=== PATIENT | male | born 1955 | race Caucasian/White ===

== ENCOUNTER 2020-02-19 16:40 | Inpatient (IN) | payer MEDICAID, SELFPAY ==
[~2020-02-19] VITALS: Ht 154.9 cm; Wt 89.8 kg
[2020-02-19 17:32] VITALS: BP 134/76
[2020-02-19 17:57] LABS: BASOPHILS % (AUTO) 0.2 % (0.0-2.0); HEMATOCRIT 42.4 % (36-52); HEMOGLOBIN 14.1 g/dL (12.0-18.0); LYMPHOCYTES # (AUTO) 0.6 K/uL (2.0-11.5); LYMPHOCYTES % (AUTO) 5.6 % (20.5-51.1); MEAN CORPUSCULAR HEMOGLOBIN 31 pg (27-31); MEAN CORPUSCULAR HGB CONC 33 g/dL (33-37); MEAN CORPUSCULAR VOLUME 92.4 fL (80-94); MONOCYTES # (AUTO) 0.7 K/uL (0.8-1.0); MONOCYTES % (AUTO) 6.2 % (1.7-9.3); NEUTROPHILS # (AUTO) 9.7 K/uL (1.8-7.7); PLATELET COUNT (AUTO) 195 K/uL (140-450); RED BLOOD CELL COUNT(AUTO) 4.58 MIL/uL (4.20-6.10); RED CELL DISTRIBUTION WIDTH 12.9 % (11.6-13.7)
[2020-02-19 18:10] LABS: PROTHROMBIN TIME 9.6 secs (10.8-13.4)
[2020-02-19 18:13] LABS: ALBUMIN 2.8 g/dL (3.4-5.0); ANION GAP 15.4 (8-16); CARBON DIOXIDE 25.7 mmol/L (21-32); CREATININE 1.1 mg/dL (0.6-1.3); POTASSIUM 4.1 mmol/L (3.5-5.1); TOTAL BILIRUBIN 0.5 mg/dL (0.0-1.0)
[2020-02-19 18:14] LABS: LACTATE DEHYDROGENASE 575 U/L (85-227)
[2020-02-19 18:24] LABS: C-REACTIVE PROTEIN QUANT 22.3 mg/dL (0.0-0.9)
[2020-02-19] MEDS ORDERED: AZITHROMYCIN 500 MG in DEXTROSE 5% 250 ML IV ONE (19:20)
--- NOTE | 2020-02-19 20:00 | NUR ---
PT MOVED TO ER BED 8 FROM TENT
--- NOTE | 2020-02-19 20:15 | NUR ---
PT MOVED TO ED BED 8
--- NOTE | 2020-02-19 20:30 | NUR ---
PT CONNECTED TO THE BELT LOOP MACHINE OPERATOR. PT IS RESTING, VISIBLE RISE AND FALL OF CHEST NOTED. NOT ACUTE DISTRESS AT THIS TIME. BED IS LOCKED AND IN LOWEST POSITION. SIDE RAILSX1. CALL LIGHT WITHIN REACH WILL CONTINUE TO MONITOR.
--- NOTE | 2020-02-19 20:35 | NUR ---
20G IV INITIATED IN THE RIGHT FOREARM RUNNING ANTIBIOTICS PER ERMD ORDERS.
[2020-02-19] MEDS ORDERED: AZITHROMYCIN 500 MG INJ VIAL IV ONE (20:38)
[2020-02-19] MEDS ORDERED: cefTRIAXone 1,000 MG VIAL ONE (20:38)
[2020-02-19 22:17] LABS: RSV NEGATIVE (NEGATIVE)
--- NOTE | 2020-02-19 22:20 | NUR ---
PT POSITIONED FOR COMFORT. PT CONNECTED TO THE CORROSION CONTROL FITTER. PT IS RESTING, VISIBLE RISE AND FALL OF CHEST NOTED. NOT ACUTE DISTRESS AT THIS TIME. BED IS LOCKED AND IN LOWEST POSITION. SIDE RAILSX1. CALL LIGHT WITHIN REACH WILL CONTINUE TO MONITOR.
--- NOTE | 2020-02-19 22:30 | NUR ---
PT UNABLE TO PROVIDE URINE SPECIMEN AT THIS TIME.
[2020-02-19] MEDS ORDERED: ALBUTEROL HFA MDI 90 MCG/ACTUATION 8 GM INH PRN (22:55)
[2020-02-19] MEDS ORDERED: NACL 0.9% 1,000 ML IV SCH (22:55)
[2020-02-19] MEDS ORDERED: DOCUSATE SODIUM 100 MG GELCAP PO PRN (22:55)
[2020-02-19] MEDS ORDERED: DEXTROSE 50% 50 ML SYR IVP PRN (22:55)
[2020-02-19] MEDS ORDERED: ONDANSETRON 4 MG/2 ML VIAL IM/IVP PRN (22:55)
[2020-02-19] MEDS ORDERED: POTASSIUM CHLORIDE 10 MEQ TABER PO PRN (22:55)
[2020-02-19 23:31] LABS: CHOL/HDL RATIO 5.2 (1-4.5); FREE T4 (FREE THYROXINE) 1.05 ng/dL (0.76-1.46); THYROID STIMULATING HORMONE 0.62 uIU/mL (0.34-3.74)
--- NOTE | 2020-02-20 00:10 | NUR ---
URINE SPECIMEN WALKED OVER TO LAB
--- NOTE | 2020-02-20 00:30 | NUR ---
PT IS RESTING, VISIBLE RISE AND FALL OF CHEST NOTED. PT CONNECTED TO THE DOORS PREFITTER. NOT ACUTE DISTRESS AT THIS TIME. BED IS LOCKED AND IN LOWEST POSITION. SIDE RAILSX1. CALL LIGHT WITHIN REACH WILL CONTINUE TO MONITOR.
[2020-02-20 01:01] LABS: APPEARANCE,URINE CLEAR (CLEAR); BILIRUBIN,URINE NEGATIVE (NEGATIVE); BLOOD, URINE NEGATIVE (NEGATIVE); COLOR,URINE YELLOW (YELLOW); LEUKOCYTE ESTERASE ,URINE NEGATIVE (NEGATIVE); NITRITE, URINE NEGATIVE (NEGATIVE); UGLUCOSE NEGATIVE (NEGATIVE)
--- NOTE | 2020-02-20 01:50 | NUR ---
PT WANTS TO USE THE RESTROOM, PT REMINDED THAT HE IS UNABLE TO AMBULATED TO THE ED MAIN RESTROOM DUE TO QUICK DESATURATION. BEDSIDE COMMODE PROVIDED. PT CONNECTED TO THE VACUUM METALIZING SUPERVISOR. NOT ACUTE DISTRESS AT THIS TIME. BED IS LOCKED AND IN LOWEST POSITION. SIDE RAILSX1. CALL LIGHT WITHIN REACH WILL CONTINUE TO MONITOR.
--- NOTE | 2020-02-20 02:00 | NUR ---
REPORT GIVEN TO MEIR PALMA FOR CONTINUATION OF CARE AT THIS TIME.
--- NOTE | 2020-02-20 03:22 | NUR ---
see complete assessment.
--- NOTE | 2020-02-20 03:45 | NUR ---
Pt had 1 soft brown stool at this time.
--- NOTE | 2020-02-20 03:48 | NUR ---
Pt provided w/ pillow and blanket for comfort. VSS. No acute distress noted.
--- NOTE | 2020-02-20 05:00 | NUR ---
Pt oxygen level decreased to 77% on 8L on oximizer, pt repositioned to left lateral , new oxygen level at 91%.
--- NOTE | 2020-02-20 07:28 | NUR ---
Report given to MEIR Costa for transfer of care.
--- NOTE | 2020-02-20 07:29 | NUR ---
Report received from MEIR chau, transfer of care at this time.
--- NOTE | 2020-02-20 07:53 | NUR ---
Pt on left side with oximizer sats at 92%, VSS, will continue to monitor.
[2020-02-20] MEDS: BLOOD GLUCOSE MONITORING 1 DEV DEV FS SCH ×4 (08:22→21:12)
[2020-02-20 08:29] LABS: BASOPHILS % (AUTO) 0.2 % (0.0-2.0); HEMATOCRIT 26.3 % (36-52); HEMOGLOBIN 8.7 g/dL (12.0-18.0); LYMPHOCYTES # (AUTO) 0.6 K/uL (2.0-11.5); LYMPHOCYTES % (AUTO) 8.7 % (20.5-51.1); MEAN CORPUSCULAR HEMOGLOBIN 31 pg (27-31); MEAN CORPUSCULAR HGB CONC 33 g/dL (33-37); MEAN CORPUSCULAR VOLUME 93.9 fL (80-94); MONOCYTES # (AUTO) 0.6 K/uL (0.8-1.0); MONOCYTES % (AUTO) 8.6 % (1.7-9.3); NEUTROPHILS # (AUTO) 5.4 K/uL (1.8-7.7); NEUTROPHILS % (AUTO) 82.5 % (42.2-75.2); PLATELET COUNT (AUTO) 117 K/uL (140-450); RED CELL DISTRIBUTION WIDTH 12.6 % (11.6-13.7); WHITE BLOOD COUNT (AUTO) 6.6 K/uL (4.8-10.8)
--- NOTE | 2020-02-20 08:36 | NUR ---
Pt changed to NRB to 15L with O2 at 90%, requesting to be up to commode.
[2020-02-20] MEDS: ASCORBIC ACID 500 MG TAB PO SCH (08:44)
--- NOTE | 2020-02-20 08:55 | NUR ---
PATIENT HAS BEEN SCREENED AND CATEGORIZED MODERATE NUTRITION RISK. PATIENT WILL BE SEEN WITHIN 3-5 DAYS OF ADMISSION. 02/22/20 02/24/[address]
--- NOTE | 2020-02-20 10:27 | NUR ---
Pt up to commode and had 1 soft BM.
--- NOTE | 2020-02-20 11:24 | NUR ---
SOCIAL WORK NOTE: Patient's Orientation Unable To Assess Information Provided By CHIQUI KRISHNAMURTHY - SON Comments SW WAS UNABLE TO MEET PATIENT AT BEDSIDE. SW COMPLETED ASSESSMENT WITH PATIENT'S SON. Rim Turning Machine Operator, Realtionship and Phone Number CHIQUI VALDIVIA [phone] Healthcare Power of Tax Services Intern No Does Patient Have a POLST No Identifying Problems No Social Work Triggers Is A Social Work Consult Needed No Mandate Report Filed No Explanation Of Identifying Problems PATIENT IS A 64-YEAR-OLD MALE ADMITTED FOR RESPIRATORY FAILURE. PATIENT HAS PMHX OF HYPERTENSION AND DIABETES. Admitted From Home Pre-Admission Level Of Functioning Status Independent/Ambulatory Prior Resources/Services Used In Last 12 Months No Prior Resources Used Prior DME No Prior DME Used Dialysis Comments N/A Living Situation Apartment Lives With Spouse Patient Had Caregiver No Home Support No Caregiver Issues Financial Issues No Known Financial Issue Referral To The Financial Counselor Needed No Factors/Needs No D/C Needs Identified Pt/Rep Participated In Discharge Plan Yes Patient/Family Agress With Discharge Plan Yes Discharge Plan Comments TENTATIVE DISCHARGE PLAN IS FOR PATIENT TO RETURN HOME. DC Plan Status Initiated
--- NOTE | 2020-02-20 13:28 | NUR ---
Spoke with Agnes engle for updates.
--- NOTE | 2020-02-20 13:45 | NUR ---
Emptied 475cc from pt urinal.
--- NOTE | 2020-02-20 15:21 | NUR ---
Pt in left side with oximizer 8L NC O2 sats above 90%.
--- NOTE | 2020-02-20 17:34 | NUR ---
Pt urinal emptied, 250cc.
--- NOTE | 2020-02-20 18:44 | NUR ---
Pt sleeping, visible equal rise and fall of chest, VSS, will continue to monitor.
--- NOTE | 2020-02-20 19:21 | NUR ---
Report given to MEIR Pollard, transfer of care.
--- NOTE | 2020-02-20 19:26 | NUR ---
RECEIVED REPORT FROM HARSH WORLEY FOR CONTINUATION OF CARE.
--- NOTE | 2020-02-20 19:50 | NUR ---
64 YR OLD MALE FOUND AWAKE LYING ON LEFT LATERAL POSITION IN BED. PATIENT IS AOX4. PATIENT HAS WHEEZES BILATERALLY. PATIENT BREATHING HAS EQUAL RISE AND FALL. PATIENT HEART SOUNDS WNL. PATIENT HAS 20 IV IN RIGHT FOREARM. PATIENT BED IS LOCKED IN LOWEST POSITION WITH 1 SIDE RAILS UP. PATIENT CALL LIGHT WITHIN REACH OF PATIENT. WILL CONTINUE TO MONITOR.
--- NOTE | 2020-02-20 19:50 | NUR ---
PATIENT STATES 8/10 NON-RADIATING HEADACHE PAIN. NORCO WAS ADMINSITERED FOR HEADACHE PAIN. WILL CONTINUE TO REEVALUATE.
[2020-02-20] MEDS: HYDROcodone/APAP 7.5/325 MG 1 TAB PO PRN (19:53)
--- NOTE | 2020-02-20 21:14 | NUR ---
PATIENT FOUND AWAKE LYING ON RIGHT LATERAL POSITION IN BED. PATIENT IS AOX4. PATIENT HAS WHEEZES BILATERALLY. PATIENT BREATHING HAS EQUAL RISE AND FALL. PATIENT HEART SOUNDS WNL. PATIENT STATES 0/10 HEADACHE PAIN. PATIENT BED IS LOCKED IN LOWEST POSITION WITH 1 SIDE RAILS UP. PATIENT CALL LIGHT WITHIN REACH OF PATIENT. WILL CONTINUE TO MONITOR.
--- NOTE | 2020-02-20 22:41 | NUR ---
PATIENT FOUND ASLEEP PRONE POSITION IN BED. PATIENT IS IN NO DISTRESS. PATIENT IS AOX4. PATIENT HAS WHEEZES BILATERALLY. PATIENT BREATHING HAS EQUAL RISE AND FALL. PATIENT HEART SOUNDS WNL. PATIENT BED IS LOCKED IN LOWEST POSITION WITH 1 SIDE RAILS UP. PATIENT CALL LIGHT WITHIN REACH OF PATIENT. WILL CONTINUE TO MONITOR.
[2020-02-20] MEDS ORDERED: cefTRIAXone 1,000 MG VIAL ONE (23:01)
[2020-02-20] MEDS: AZITHROMYCIN 250 MG TAB PO SCH (23:25)
--- NOTE | 2020-02-20 23:27 | NUR ---
PATIENT FOUND ASLEEP PRONE POSITION IN BED. PATIENT IS IN NO DISTRESS. PATIENT IS AOX4. PATIENT HAS WHEEZES BILATERALLY. PATIENT BREATHING HAS EQUAL RISE AND FALL. PATIENT HEART SOUNDS WNL. EMPTIED 400 ML OF YELLOW URINE FROM PATIENT URINAL. PATIENT BED IS LOCKED IN LOWEST POSITION WITH 1 SIDE RAILS UP. PATIENT CALL LIGHT WITHIN REACH OF PATIENT. WILL CONTINUE TO MONITOR.
--- NOTE | 2020-02-21 00:39 | NUR ---
PATIENT FOUND ASLEEP PRONE POSITION IN BED. PATIENT IS IN NO DISTRESS. PATIENT HAS WHEEZES BILATERALLY. PATIENT BREATHING HAS EQUAL RISE AND FALL. PATIENT BED IS LOCKED IN LOWEST POSITION WITH 1 SIDE RAILS UP. PATIENT CALL LIGHT WITHIN REACH OF PATIENT. WILL CONTINUE TO MONITOR.
--- NOTE | 2020-02-21 00:50 | NUR ---
PATIENT FOUND AWAKE ON RIGHT LATERAL POSITION IN BED. PATIENT STATES NO PAIN AND NO DISTRESS. PATIENT HAS WHEEZES BILATERALLY. PATIENT BREATHING HAS EQUAL RISE AND FALL. PATIENT HEART SOUNDS WNL. 125ML OF CLEAR YELLOW URINE EMPTIED FROM PATIENT'S URINAL. PATIENT BED IS LOCKED IN LOWEST POSITION WITH 1 SIDE RAILS UP. PATIENT CALL LIGHT WITHIN REACH OF PATIENT. WILL CONTINUE TO MONITOR.
--- NOTE | 2020-02-21 02:11 | NUR ---
PATIENT FOUND AWAKE ON LEFT LATERAL POSITION IN BED. PATIENT STATES NO PAIN AND NO DISTRESS. PATIENT HAS WHEEZES BILATERALLY. PATIENT BREATHING HAS EQUAL RISE AND FALL. PATIENT HEART SOUNDS WNL. PATIENT BED IS LOCKED IN LOWEST POSITION WITH 2 SIDE RAILS UP. PATIENT CALL LIGHT WITHIN REACH OF PATIENT. WILL CONTINUE TO MONITOR.
--- NOTE | 2020-02-21 03:22 | NUR ---
PATIENT WAS FOUND AWAKE ON LEFT LATERAL SIDE. PATIENT REQUESTED BED GLASGOW. BED GLASGOW WAS PROVIDED FOR PATIENT TO USE. PATIENT STATED DOES NOT NEED ASSISTANCE TO USE BED GLASGOW. PATIENT WAS INFORMED TO USE CALL LIGHT IF ASSISTANCE IS NEEDED. PATIENT ACKNOWLEDGE TO USE CALL LIGHT WHEN ASSISTANCE IS NEEDED AFTER BED GLASGOW USE. CALL LIGHT IS WITHIN PATIENT REACH. PATIENT STATES NO PAIN. PATIENT STATES NO DISTRESS. WILL CONTINUE TO MONITOR.
--- NOTE | 2020-02-21 03:39 | NUR ---
PATIENT HAD BOWEL MOVEMENT INTO BED GLASGOW. PATIENT BOWEL MOVEMENT IS SOFT AND BROWN. 100 ML OF CLEAR YELLOW URINE EMPTIED FROM URINAL. PATIENT STATES NO PAIN AND NO DISTRESS.
--- NOTE | 2020-02-21 03:54 | NUR ---
PATIENT FOUND AWAKE IN RIGHT LATERAL POSITION IN BED. PATIENT STATES NO PAIN NO DISTRESS. PATIENT HAS WHEEZES BILATERALLY. PATIENT BREATHING HAS EQUAL RISE AND FALL. PATIENT BED IS LOCKED IN LOWEST POSITION WITH 2 SIDE RAILS UP. PATIENT CALL LIGHT WITHIN REACH OF PATIENT. WILL CONTINUE TO MONITOR.
[2020-02-21] MEDS: HYDROcodone/APAP 7.5/325 MG 1 TAB PO PRN ×4 (06:31→23:53)
--- NOTE | 2020-02-21 06:33 | NUR ---
PATIENT FOUND AWAKE IN SEMI-FOWLERS POSITION IN BED. PATIENT STATES 8/10 NON-RADIATING HEADACHE PAIN. NORCO WAS ADMINSITERED FOR HEADACHE PAIN. PATIENT HAS WHEEZES BILATERALLY. PATIENT BREATHING HAS EQUAL RISE AND FALL. PATIENT BED IS LOCKED IN LOWEST POSITION WITH 2 SIDE RAILS UP. PATIENT CALL LIGHT WITHIN REACH OF PATIENT. WILL CONTINUE TO MONITOR.
--- NOTE | 2020-02-21 06:57 | NUR ---
PATIENT FOUND AWAKE IN SEMI-FOWLERS POSITION IN BED. PATIENT STATES 0/10 HEADACHE PAIN. PATIENT STATES NO DISTRESS. PATIENT HAS WHEEZES BILATERALLY. PATIENT BREATHING HAS EQUAL RISE AND FALL. PATIENT BED IS LOCKED IN LOWEST POSITION WITH 2 SIDE RAILS UP. PATIENT CALL LIGHT WITHIN REACH OF PATIENT. WILL CONTINUE TO MONITOR
--- NOTE | 2020-02-21 07:18 | NUR ---
TRANSFER OF CARE REPORT GIVEN TO RONALD WORLEY.
[2020-02-21 08:07] LABS: T4 (THYROXINE) 5.8 ug/dL (4.5-12.0)
[2020-02-21] MEDS: BLOOD GLUCOSE MONITORING 1 DEV DEV FS SCH ×4 (08:20→22:17)
[2020-02-21 08:49] LABS: BASOPHILS % (AUTO) 0.3 % (0.0-2.0); EOSINOPHILS % (AUTO) 0.1 % (0.0-4.0); HEMATOCRIT 39.6 % (36-52); HEMOGLOBIN 13.5 g/dL (12.0-18.0); LYMPHOCYTES # (AUTO) 0.9 K/uL (2.0-11.5); LYMPHOCYTES % (AUTO) 8.1 % (20.5-51.1); MEAN CORPUSCULAR HEMOGLOBIN 32 pg (27-31); MEAN CORPUSCULAR HGB CONC 34 g/dL (33-37); MEAN CORPUSCULAR VOLUME 92.9 fL (80-94); MONOCYTES # (AUTO) 1.1 K/uL (0.8-1.0); MONOCYTES % (AUTO) 9.9 % (1.7-9.3); NEUTROPHILS # (AUTO) 8.7 K/uL (1.8-7.7); NEUTROPHILS % (AUTO) 81.6 % (42.2-75.2); PLATELET COUNT (AUTO) 200 K/uL (140-450); RED BLOOD CELL COUNT(AUTO) 4.26 MIL/uL (4.20-6.10); RED CELL DISTRIBUTION WIDTH 12.7 % (11.6-13.7); WHITE BLOOD COUNT (AUTO) 10.7 K/uL (4.8-10.8)
--- NOTE | 2020-02-21 09:06 | NUR ---
Patient seated upright in bed with breakfast tray, awake and alert. VSS
[2020-02-21] MEDS: ASCORBIC ACID 500 MG TAB PO SCH (09:18)
[2020-02-21 10:18] LABS: ANION GAP 21.2 (8-16); CARBON DIOXIDE 21.5 mmol/L (21-32); CREATININE 0.8 mg/dL (0.6-1.3); POTASSIUM 3.7 mmol/L (3.5-5.1)
[2020-02-21] MEDS ORDERED: LOVENOX 1MG/KG Q12H SUBQ SCH (10:25)
[2020-02-21] MEDS ORDERED: remdesivir COMMUNICATION ORDER 1 EA MISC MC PRN (10:25)
[2020-02-21] MEDS ORDERED: remdesivir CLINICAL MONITORING 1 EA MISC MC PRN (11:00)
--- NOTE | 2020-02-21 11:54 | NUR ---
C/O PAIN. MEDICATED ORDERED. SOB IS NOTED ON EXERTION
[2020-02-21] MEDS ORDERED: REMDESIVIR (EUA) 200 MG in NACL 0.9% 100 ML IV SCH (12:00)
--- NOTE | 2020-02-21 12:00 | NUR ---
ACCUCHECK = 107
--- NOTE | 2020-02-21 14:38 | NUR ---
DC PLANNIN YRS OLD MALE PATIENT WAS ADMITTED FROM HOME WITH A DX OF ACUTE RESP FAILURE , SUSPECT COVID. PCR COVID TEST POSITIVE. STARTED WITH COVID TREATMENT. REMDESEIVR IV, ROCEPHIN AND AZITHROMYCIN. ON 15L/NRB SATING 93% CONSULTED WITH ID AND PULMO. DC PLAN TO GO HOME WHEN STABLE CM TO FOLLOW Addendum: 02/26/20 at 1204 by Betty Vasquez RN DC PLANNING PT IS STILL ON 15L/NRB SATING 90% ,CONTINUE COVID PROTOCOL , ID AND PULMO FOLLOWING. CM TO FOLLOW
--- NOTE | 2020-02-21 19:30 | NUR ---
RECEIVED REPORT FROM JOSEPH WORLEY
--- NOTE | 2020-02-21 20:04 | NUR ---
PT SCREAMING IN HIS ROOM, PT SAYS HE WANTS HIS NONREBREATHER TURNED DOWN, PT O2 SAT 79%, EXPALINED TO PT THAT HIS O2 SAT IS TOO LOW AND IT WILL NOT BE TURNED DOWN, HE KEEPS REMOVING HIS MASK, ADVISED ITS VERY DANGEROUS FOR THE LEVEL TO DROP INTO THE 70'S AND IT CONTINUES HE WILL HAVE TO BE INTUBATED. PT VERBALIZED UNDERSTANDING AND PLAVED MASK BACK ON . PT REMAINS ON BEDSIDE MONITOR. WILL CONTINUE TO MONITOR PT
--- NOTE | 2020-02-21 20:10 | NUR ---
PT C/O PAIN, MEDICATED ORDERED WITH BRENNA
[2020-02-21] MEDS ORDERED: cefTRIAXone 1,000 MG VIAL ONE (21:58)
[2020-02-21] MEDS: ENOXAPARIN 100 MG/ML SYR SUBQ SCH (22:30)
--- NOTE | 2020-02-21 23:49 | NUR ---
PT C/O FEVER AND BODY ACHES. TEMP 97.5, STATES PAIN 10/10
--- NOTE | 2020-02-21 23:49 | NUR ---
MRSA SWAB COLLECTED AND TAKEN TO LAB
[2020-02-21] MEDS: AZITHROMYCIN 250 MG TAB PO SCH (23:54)
--- NOTE | 2020-02-21 23:56 | NUR ---
PT ALSO REQUESTING SLEEPING AID. NOTIFIED, ORDERED RECEIVED
[2020-02-22] MEDS ORDERED: ZOLPIDEM 5 MG TAB ONE
--- NOTE | 2020-02-22 01:21 | NUR ---
PT'S O2 SAT CONTINUES TO FALL IN THE LOW 80'S TO 79%. PT WAS SLEEPING WHEN I WNET IN AND TURNED FROM 12L TO 15 L ON NONREBREATHER. PT NOW COMPLAINING AGAIN THAT THE O2 IS TO HIGH. CONTINOUSLY EXPLAIN TO PT THE NEED AND IMPORTANCE TO KEEP HIS O2 SAT IN THE HIGH 80'S AT THE LEAST. PT STATES HE UNDERSTANDS BUT CONTINUES TO COMPLAIN. PT REMAINS ON BEDSIDE MONITOR AND O2. WILL CONTINUE TO ASSESS PT
--- NOTE | 2020-02-22 03:42 | NUR ---
PT REQUESTING BEDPAN, HAS TO HAVE A BOWEL MOVEMENT. SET UP BEDPAN AT SIDE ON BED ON THE CHAIR. PT SUPPLIED WITH WIPES AND TOILET PAPER.
--- NOTE | 2020-02-22 03:52 | NUR ---
PT CALLED ROCK DUST SPRAYER LIGHT, FOUND PT HAD MOVED BEDPAN TO FLOOR TO USE, WHEN ASKED IF HE NEEDED ASSISTANCE HE SAID "I JUST WANT TO BE LEFT ALONE"
[2020-02-22] MEDS: ZOLPIDEM 5 MG TAB PO PRN ×2 (03:59→21:40)
--- NOTE | 2020-02-22 04:14 | NUR ---
PT BACK IN BED, DID NOT HAVE BOWEL MOVEMENT
--- NOTE | 2020-02-22 05:58 | NUR ---
PT CRYING SAYING HE WANTS TO GO HOME, THATS HE'S BEEN HERE TOO LONG. PT CONTINUES TO COMPLAIN ABOUT HIS NONREBREATHER MASK AND CONTINUES TO REMOVE IT. ALSO COMPLAINING OF HEADACHE AND HE DOESN'T FEEL GOOD. EXPLAINED AGAIN TO PT THAT HE HAS BEEN ADMITTED TO HOSPITAL AND HE IS AWAITING A BED ON THE UNIT. CONTINUE TO EXPAIN TO PT THAT HE NEEDS TO ADMITTED DUE TO THE FACT HE IS SICK AND HE DOESN'T FEEL GOOD AND HE NEEDS TREATMENT IN THE HOSPITAL. PT IS VERY DRAMATIC, CURRENTLY ON THE PHONE AND CRYING TO FAMILY.
[2020-02-22] MEDS: HYDROcodone/APAP 7.5/325 MG 1 TAB PO PRN (06:06)
--- NOTE | 2020-02-22 07:22 | NUR ---
Pt report given to LIN WORLEY. Transfer of care at this time.
[2020-02-22] MEDS: BLOOD GLUCOSE MONITORING 1 DEV DEV FS SCH ×4 (07:56→20:50)
--- NOTE | 2020-02-22 07:58 | NUR ---
PATIENT RESTING IN BED AT THIS TIME, 15L NON BREATHER, NO ACUTE DISTRESS NOTED. AAOX4. GCS 15.
[2020-02-22] MEDS: ASCORBIC ACID 500 MG TAB PO SCH (08:13)
[2020-02-22] MEDS: ENOXAPARIN 100 MG/ML SYR SUBQ SCH ×2 (08:13→20:45)
[2020-02-22 08:45] LABS: BASOPHILS % (AUTO) 0.2 % (0.0-2.0); EOSINOPHILS % (AUTO) 0.2 % (0.0-4.0); HEMOGLOBIN 13.6 g/dL (12.0-18.0); LYMPHOCYTES # (AUTO) 0.9 K/uL (2.0-11.5); LYMPHOCYTES % (AUTO) 7.9 % (20.5-51.1); MEAN CORPUSCULAR HEMOGLOBIN 31 pg (27-31); MEAN CORPUSCULAR HGB CONC 33 g/dL (33-37); MEAN CORPUSCULAR VOLUME 92.7 fL (80-94); MONOCYTES # (AUTO) 1.2 K/uL (0.8-1.0); MONOCYTES % (AUTO) 10.7 % (1.7-9.3); NEUTROPHILS # (AUTO) 9.4 K/uL (1.8-7.7); PLATELET COUNT (AUTO) 239 K/uL (140-450); RED BLOOD CELL COUNT(AUTO) 4.42 MIL/uL (4.20-6.10); RED CELL DISTRIBUTION WIDTH 12.8 % (11.6-13.7); WHITE BLOOD COUNT (AUTO) 11.6 K/uL (4.8-10.8)
[2020-02-22 09:20] VITALS: BP 127/70
--- NOTE | 2020-02-22 09:27 | NUR ---
Patient will be admitted to care of [facility]. Admited to TELE. Will go to room 121B. Belongings list completed. Report to SHADI WORLEY.
[2020-02-22 09:39] LABS: ALBUMIN 2.5 g/dL (3.4-5.0); ANION GAP 17.6 (8-16); CARBON DIOXIDE 24.3 mmol/L (21-32); POTASSIUM 3.9 mmol/L (3.5-5.1); TOTAL BILIRUBIN 0.5 mg/dL (0.0-1.0)
[2020-02-22 12:00] VITALS: BP 131/75
[2020-02-22] MEDS: REMDESIVIR (EUA) 100 MG in NACL 0.9% 100 ML IV SCH (12:44)
--- NOTE | 2020-02-22 12:45 | NUR ---
SCHEDULED MEDICATION ADMINISTERED, PT IS RESTING IN BED, EDUCATION PROVIDED, PT VERBALIZED UNDERSTANDING, WILL CONTINUE TO MONITOR.
--- NOTE | 2020-02-22 15:48 | NUR ---
Covid results received from lab. Results = Positive. Hard copy requested from lab and placed in infection controls mailbox.
[2020-02-22 16:00] VITALS: BP 146/77
[2020-02-22] MEDS: INSULIN LISPRO SLIDING SCALE 100 UNITS/ML VIAL SUBQ PRN (17:20)
--- NOTE | 2020-02-22 17:27 | NUR ---
INSULIN COVERAGE NEEDED FOR BS 172, 2 UNITS ADMINISTERED, PT IS RESTING IN BED AND STATES HE WOULD LIKE TO TAKE MEDICATION TO HELP HIM SLEEP AT NIGHT, EDUCATED PT ON PRN AMBIEN, WILL CONTINUE TO MONITOR, NO SIGNS OF DISTRESS NOTED.
--- NOTE | 2020-02-22 19:20 | NUR ---
RECEIVED BEDSIDE REPORT FROM DAY SHIFT NURSE. PATIENT IS AWAKE RESPIRATION EVEN UNLABORED ON 15L NRB MASK. NO DISTRESS NOTED. SKIN IS WARM AND DRY. IV PATENT AND INTACT. PLAN OF CARE WAS DISCUSSED. ALL SAFETY MEASURES IN PLACE. BED IS AT LOW POSITION. CALL LIGHT WITHIN REACH. WILL CONTINUE TO MONITOR.
--- NOTE | 2020-02-22 19:40 | NUR ---
ENDORSED PT TO CERTIFIED SURGICAL TECHNOLOGIST NURSE FOR CONTINUITY OF CARE.
--- NOTE | 2020-02-22 20:50 | NUR ---
ALL SCHEDULED MEDS WERE GIVEN PER ORDER. NO ASE NOTED. WILL CONTINUE TO MONITOR
--- NOTE | 2020-02-22 21:40 | NUR ---
PATIENT IS HAVING A HARD TIME FALLING ASLEEP. PRN AMBIEN GIVEN PER ORDER. WILL CONTINUE TO MONITOR
--- NOTE | 2020-02-22 23:29 | NUR ---
MADE ROUNDS. PATIENT SLEEPING RESPIRATION EVEN UNLABORED ON 15L NRB MASK. NO DISTRESS NOTED. WILL CONTINUE TO MONITOR
[2020-02-23] VITALS: BP 133/74
--- NOTE | 2020-02-23 02:15 | NUR ---
MADE ROUNDS PATIENT SLEEPING RESPIRATION EVEN UNLABORED ON 15L NRB MASK O2. NO DISTRESS NOTED. WILL CONTINUE TO MONITOR.
[2020-02-23 04:00] VITALS: BP 160/81
--- NOTE | 2020-02-23 04:10 | NUR ---
MORNING CARE PROVIDED
[2020-02-23] MEDS: BLOOD GLUCOSE MONITORING 1 DEV DEV FS SCH ×4 (06:43→21:30)
--- NOTE | 2020-02-23 07:10 | NUR ---
HANDOFF REPORT FROM EDGE GLUER RN. POC REVIEWED AND DISCUSSED. PT ALERT AND ORIENTED X4. DENIES DISCOMFORT. ON NRM 15L, OBTAINED 90 TO 93% O2 SAT. NO CYANOSIS NOTED. KEPT HOB ELEVATED. ISOLATION PRECAUTION OBSERVED. WILL CONTINUE TO MONITOR.
[2020-02-23 07:21] LABS: ALBUMIN 2.4 g/dL (3.4-5.0); ANION GAP 16.5 (8-16); CARBON DIOXIDE 25.3 mmol/L (21-32); CREATININE 1.1 mg/dL (0.6-1.3); POTASSIUM 3.8 mmol/L (3.5-5.1); TOTAL BILIRUBIN 0.5 mg/dL (0.0-1.0)
[2020-02-23 07:31] LABS: MAGNESIUM 1.8 mg/dL (1.8-2.4); PHOSPHORUS 3.1 mg/dL (2.5-4.9)
[2020-02-23 07:32] LABS: BASOPHILS % (AUTO) 0.2 % (0.0-2.0); EOSINOPHILS % (AUTO) 0.2 % (0.0-4.0); HEMATOCRIT 40.2 % (36-52); HEMOGLOBIN 13.1 g/dL (12.0-18.0); LYMPHOCYTES # (AUTO) 1.1 K/uL (2.0-11.5); LYMPHOCYTES % (AUTO) 8.8 % (20.5-51.1); MEAN CORPUSCULAR HEMOGLOBIN 31 pg (27-31); MEAN CORPUSCULAR HGB CONC 33 g/dL (33-37); MEAN CORPUSCULAR VOLUME 93.6 fL (80-94); MONOCYTES # (AUTO) 1.3 K/uL (0.8-1.0); MONOCYTES % (AUTO) 10.2 % (1.7-9.3); NEUTROPHILS % (AUTO) 80.6 % (42.2-75.2); PLATELET COUNT (AUTO) 284 K/uL (140-450); RED BLOOD CELL COUNT(AUTO) 4.29 MIL/uL (4.20-6.10); RED CELL DISTRIBUTION WIDTH 12.8 % (11.6-13.7); WHITE BLOOD COUNT (AUTO) 12.4 K/uL (4.8-10.8)
--- NOTE | 2020-02-23 07:35 | NUR ---
ENDORSED PATIENT TO DAY SHIFT NURSE FOR CONTINUITY OF CARE
[2020-02-23 08:00] VITALS: BP 136/62
[2020-02-23] MEDS: ENOXAPARIN 100 MG/ML SYR SUBQ SCH ×2 (09:05→21:22)
[2020-02-23] MEDS: ASCORBIC ACID 500 MG TAB PO SCH (09:05)
[2020-02-23 12:00] VITALS: BP 130/74
--- NOTE | 2020-02-23 12:00 | NUR ---
PT IS RESTING AND CALM. DENIES PAIN. NO SOB NOTED. WILL CONTINUE TO MONITOR.
[2020-02-23] MEDS: REMDESIVIR (EUA) 100 MG in NACL 0.9% 100 ML IV SCH (12:24)
[2020-02-23 16:00] VITALS: BP 121/65
--- NOTE | 2020-02-23 16:00 | NUR ---
OBTAINED 96% O2 SAT. KEPT ON NRM AT 15L O2. NO SOB NOTED.
[2020-02-23] MEDS: INSULIN LISPRO SLIDING SCALE 100 UNITS/ML VIAL SUBQ PRN ×2 (18:43→21:31)
--- NOTE | 2020-02-23 19:15 | NUR ---
HANDOFF REPORT GIVEN TO TRAINING PROGRAM ASSISTANT RN. POC REVIEWED AND DISCUSSED. ENDORSED PT WITH NO CHANGE OF CONDITION.
--- NOTE | 2020-02-23 19:30 | NUR ---
HANDOFF REPORT GIVEN TO HOG KILLER RN. SALES REVIEWED AND DISCUSSED. ENDORSED PT WITH NO CHANGE OF CONDITION. Addendum: 02/23/20 at 2010 by Triston Jackson RN NOTES
--- NOTE | 2020-02-23 19:31 | NUR ---
RECEIVED REPORT FROM DAY SHIFT NURSE. PT AAOX4, AMBULATORY, ABLE TO MAKE NEEDS KNOWN. PT ON O2 15LPM/NON-REBREATHER MASK. ABDOMEN IS SOFT AND NON-TENDER, ACTIVE BOWEL SOUNDS NOTED. SKIN IS WARM, DRY, AND INTACT. PT WITH IV ACCESS ON LEFT FA G20 PATENT AND INTACT, SALINE LOCKED. PT DENIES ANY PAIN OR DISCOMFORT AT THIS TIME. NO REQUESTS MADE. SAFETY MEASURES IN PLACE. CALL LIGHT WITHIN REACH. WILL CONTINUE TO MONITOR.
[2020-02-23 20:00] VITALS: BP 128/77
--- NOTE | 2020-02-23 21:22 | NUR ---
VS STABLE. SCHEDULED MEDS GIVEN. NRB MASK IN PLACE. PT NOT IN DISTRESS. DENIES ANY PAIN OR DISCOMFORT AT THIS TIME. NO REQUESTS MADE. SAFETY MEASURES IN PLACE. CALL LIGHT WITHIN REACH. WILL CONTINUE TO MONITOR.
[2020-02-24] VITALS: BP 104/55
--- NOTE | 2020-02-24 00:05 | NUR ---
PT IN BED. VS STABLE. NO S/SX OF DISTRESS NOTED. NRB MASK IN PLACE. PT KEPT SAFE AND COMFORTABLE. SAFETY MEASURES IN PLACE. CALL LIGHT WITHIN REACH. WILL CONTINUE TO MONITOR.
--- NOTE | 2020-02-24 03:20 | NUR ---
STARTED CONVALESCENT PLASMA TRANSFUSION. 2 NURSE VERIFICATION DONE PRIOR. VS STABLE. WILL CONTINUE TO MONITOR.
[2020-02-24 04:00] VITALS: BP 144/83
--- NOTE | 2020-02-24 04:30 | NUR ---
CONVALESCENT PLASMA TRANSFUSION DONE. PT TOLERATED WELL. NO REACTIONS NOTED. VS STABLE. WILL CONTINUE TO MONITOR.
[2020-02-24] MEDS: ACETAMINOPHEN 325 MG TAB PO PRN (06:14)
--- NOTE | 2020-02-24 06:15 | NUR ---
PT COMPLAINING OF HEADACHE. PRN TYLENOL GIVEN ORDERED. WILL CONTINUE TO MONITOR.
[2020-02-24] MEDS: BLOOD GLUCOSE MONITORING 1 DEV DEV FS SCH ×4 (06:39→21:02)
--- NOTE | 2020-02-24 07:43 | NUR ---
ENDORSED TO DAY SHIFT NURSE FOR CONTINUITY OF CARE
--- NOTE | 2020-02-24 07:44 | NUR ---
Received report from MEIR Arce shift supervisor rn
[2020-02-24 08:00] VITALS: BP 120/62
[2020-02-24 08:28] LABS: ALBUMIN 2.5 g/dL (3.4-5.0); ANION GAP 14.6 (8-16); CARBON DIOXIDE 26.1 mmol/L (21-32); POTASSIUM 3.7 mmol/L (3.5-5.1); TOTAL BILIRUBIN 0.5 mg/dL (0.0-1.0)
[2020-02-24] MEDS: ASCORBIC ACID 500 MG TAB PO SCH (09:46)
[2020-02-24] MEDS: ENOXAPARIN 100 MG/ML SYR SUBQ SCH ×2 (09:47→20:57)
[2020-02-24 12:00] VITALS: BP 120/62
[2020-02-24] MEDS: REMDESIVIR (EUA) 100 MG in NACL 0.9% 100 ML IV SCH (14:05)
[2020-02-24 16:00] VITALS: BP 122/69
--- NOTE | 2020-02-24 16:29 | NUR ---
02/24/20 RD INITIAL ASSESSMENT COMPLETED PLEASE REFER TO NUTRITION ASSESSMENT UNDER CARE ACTIVITY FOR ESTIMATED NUTRITIONAL NEEDS. 1. CONTINUE CCHO 60GM DIET TOLERATED 2. RECOMMENDED GLUCERNA TID 3. RD TO FOLLOW-UP 2-3 DAYS, HIGH RISK DAMIÁN CASTELLANOS, RD
[2020-02-24] MEDS: INSULIN LISPRO SLIDING SCALE 100 UNITS/ML VIAL SUBQ PRN ×2 (17:40→21:03)
--- NOTE | 2020-02-24 19:30 | NUR ---
RECEIVED REPORT FROM DAY SHIFT NURSE. PT AAOX4, AMBULATORY, ABLE TO MAKE NEEDS KNOWN. PT ON O2 15LPM/NON-REBREATHER MASK. PT CURRENTLY NOT IN DISTRESS. ABDOMEN IS SOFT AND NON-TENDER, ACTIVE BOWEL SOUNDS NOTED. SKIN IS WARM, DRY, AND INTACT. PT WITH IV ACCESS ON LEFT FA G20 PATENT AND INTACT, SALINE LOCKED. PT DENIES ANY PAIN OR DISCOMFORT AT THIS TIME. NO REQUESTS MADE. SAFETY MEASURES IN PLACE. CALL LIGHT WITHIN REACH. WILL CONTINUE TO MONITOR.
[2020-02-24 20:00] VITALS: BP 113/66
--- NOTE | 2020-02-24 20:57 | NUR ---
VS STABLE. SCHEDULED MEDS GIVEN. NON-REBREATHER MASK IN PLACE. PT NOT IN DISTRESS. DENIES ANY PAIN OR DISCOMFORT AT THIS TIME. NO REQUESTS MADE. CALL LIGHT WITHIN REACH. WILL CONTINUE TO MONITOR.
--- NOTE | 2020-02-25 00:12 | NUR ---
VS STABLE. PT IN BED RESTING. NON-REBREATHER MASK IN PLACE. NO S/SX OF DISTRESS NOTED. PT KEPT COMFORTABLE. CALL LIGHT WITHIN REACH. WILL CONTINUE TO MONITOR.
--- NOTE | 2020-02-25 02:01 | NUR ---
PT SLEEPING WITH HOB ELEVATED, NON-REBREATHER MASK IN PLACE. NO S/SX OF DISTRESS NOTED. VISIBLE CHEST RISE AND FALL NOTED. PT KEPT COMFORTABLE. CALL LIGHT WITHIN REACH. WILL CONTINUE TO MONITOR.
[2020-02-25 04:00] VITALS: BP 117/68
--- NOTE | 2020-02-25 04:20 | NUR ---
VS STABLE. PT RESTING WITH HOB ELEVATED. PT DENIES ANY PAIN OR DISCOMFORT. NO S/SX OF DISTRESS NOTED. NO REQUESTS MADE AT THIS TIME. PT KEPT COMFORTABLE. CALL LIGHT WITHIN REACH. WILL CONTINUE TO MONITOR.
[2020-02-25] MEDS: BLOOD GLUCOSE MONITORING 1 DEV DEV FS SCH ×4 (06:31→19:24)
[2020-02-25 07:06] LABS: ALBUMIN 2.5 g/dL (3.4-5.0); ANION GAP 12.8 (8-16); CREATININE 0.9 mg/dL (0.6-1.3); POTASSIUM 3.8 mmol/L (3.5-5.1); TOTAL BILIRUBIN 0.4 mg/dL (0.0-1.0)
--- NOTE | 2020-02-25 07:48 | NUR ---
ENDORSED TO DAY SHIFT NURSE FOR CONTINUITY OF CARE
[2020-02-25 08:00] VITALS: BP 115/66
--- NOTE | 2020-02-25 08:11 | NUR ---
REC'D REPORT FROM CRIBBER NURSE, PT STABLE, SITTING UP ON CHAIR, STABLE
[2020-02-25] MEDS: ENOXAPARIN 100 MG/ML SYR SUBQ SCH ×2 (09:00→22:36)
[2020-02-25] MEDS: ASCORBIC ACID 500 MG TAB PO SCH (09:00)
[2020-02-25] MEDS: REMDESIVIR (EUA) 100 MG in NACL 0.9% 100 ML IV SCH (12:00)
[2020-02-25 16:00] VITALS: BP 91/45
[2020-02-25] MEDS: INSULIN LISPRO SLIDING SCALE 100 UNITS/ML VIAL SUBQ PRN ×2 (18:59→22:38)
--- NOTE | 2020-02-25 19:58 | NUR ---
ENDORSED PT TO [employer]NER [employer] NURSE, PT STABLE ON 15L NRB
[2020-02-25 20:00] VITALS: BP_SYST 114; BP_SYST 91; BP_DIAS 45; BP_DIAS 71
[2020-02-26] VITALS: BP 91/45
[2020-02-26 04:00] VITALS: BP 125/70
[2020-02-26 06:55] LABS: ALBUMIN 2.5 g/dL (3.4-5.0); CARBON DIOXIDE 24.7 mmol/L (21-32); CREATININE 0.8 mg/dL (0.6-1.3); POTASSIUM 3.7 mmol/L (3.5-5.1); TOTAL BILIRUBIN 0.4 mg/dL (0.0-1.0)
[2020-02-26] MEDS: BLOOD GLUCOSE MONITORING 1 DEV DEV FS SCH ×4 (07:30→21:33)
--- NOTE | 2020-02-26 07:32 | NUR ---
REC'D REPORT FROM WIRELESS CELLULAR TECHNICIAN NURSE, PT ON 15L NRB, PT WAS CRYING, STATED HE WAS FEELING VERY SICK, OXYGENATION AT 88%, REPLACED NON REBREATHER MASK SINCE VALVES WERE MISSING FROM MASK, ADVISED HIM TO RELAX AND THINK ABOUT GOING HOME WHEN HE FEELS BETTER, DEEP BREATHING AND IMAGERY TO HELP COPE WITH ANXIETY.
[2020-02-26 08:00] VITALS: BP 126/69
[2020-02-26] MEDS: ENOXAPARIN 100 MG/ML SYR SUBQ SCH ×2 (10:18→21:37)
[2020-02-26] MEDS: ASCORBIC ACID 500 MG TAB PO SCH (10:19)
[2020-02-26 12:00] VITALS: BP 120/65
[2020-02-26] MEDS: INSULIN LISPRO SLIDING SCALE 100 UNITS/ML VIAL SUBQ PRN ×3 (12:52→21:38)
[2020-02-26 16:00] VITALS: BP 107/55
[2020-02-26] MEDS: LORazepam 2 MG/ML VIAL IVP PRN (16:20)
--- NOTE | 2020-02-26 16:35 | NUR ---
PT C/O ANXIETY AND FEELING OF RESTLESSNESS, ADMINISTERED ATIVE 1MG IV PRESCRIBED BY MD. PT IV SITE PATENT, TOLERATED PROCEDURE WELL
--- NOTE | 2020-02-26 19:25 | NUR ---
ENDORSED PT TO AIRCRAFT MANAGER NURSE , PT STABLE 15L NRB HAVING DINNER, NO SIGN OF DISTRESS.
[2020-02-26 20:00] VITALS: BP 114/62
--- NOTE | 2020-02-26 20:00 | NUR ---
Assumed care. He is sleeping deeply. In no acute distress. Bed is in a low position. Call light within reach. On NRBM. tolerating well.
--- NOTE | 2020-02-26 22:00 | NUR ---
PM medications given tolerated well. Getting ready to go back to sleep. Will continue to monitor.
[2020-02-27] VITALS: BP 114/62
--- NOTE | 2020-02-27 | NUR ---
Remians sleeping. In no acute distress will continue to monitor.
[2020-02-27 04:00] VITALS: BP 126/64
--- NOTE | 2020-02-27 05:19 | NUR ---
CALLED TO BEDSIDE PT DESAT INTO 70s. PT STATED HE BECAME ANXIOUS & RESTLESS AND MOVED TO A CHAIR IN . PT CURRENTLY ON NRB AND SPO2 ESA TO 86%.
--- NOTE | 2020-02-27 05:19 | NUR ---
Stats have gone down to the 70's. He is on a NRBM. We have increased it up to 15 liters 100% Sats have increased up to 85-86%. RT at the bedside. Will continue to monitor.
--- NOTE | 2020-02-27 07:00 | NUR ---
Presently, he is sitting in the chair. In no acute distress. Will endorse to AM MEIR.
[2020-02-27] MEDS: ASCORBIC ACID 500 MG TAB PO SCH (09:31)
[2020-02-27] MEDS: ENOXAPARIN 100 MG/ML SYR SUBQ SCH ×2 (09:33→20:04)
[2020-02-27] MEDS: BLOOD GLUCOSE MONITORING 1 DEV DEV FS SCH ×3 (11:30→19:44)
[2020-02-27] MEDS: INSULIN LISPRO SLIDING SCALE 100 UNITS/ML VIAL SUBQ PRN ×3 (12:53→20:04)
[2020-02-27 16:25] VITALS: BP 145/79
--- NOTE | 2020-02-27 16:27 | NUR ---
02/27/20 RD INITIAL ASSESSMENT COMPLETED PLEASE REFER TO NUTRITION ASSESSMENT UNDER CARE ACTIVITY FOR ESTIMATED NUTRITIONAL NEEDS. 1. CONTINUE CCHO 60GM DIET TOLERATED 2. CONTINUE GLUCERNA TID 3. ENCOURAGE PO INTAKE ABOVE 75% 4. RD TO FOLLOW-UP 3-5 DAYS, MODERATE RISK ERLINDA CASTELLANOS RD Addendum: 02/27/20 at [address] RD FOLLOW UP COMPLETED
--- NOTE | 2020-02-27 19:30 | NUR ---
RECEIVED REPORT FROM RUTH ANN RNPRASANNA. PT AOX4 ON 15L NRB. NO S/S RESPIRATORY DISTRESS. NO C/O PAIN AT THIS TIME. IV SITE LFA 20G, S.L. SAFETY MEASURES IN PLACE. CALL LIGHT WITHIN REACH. WILL CONTINUE TO MONITOR
[2020-02-27 20:00] VITALS: BP 123/72
--- NOTE | 2020-02-27 20:10 | NUR ---
ADMINISTERED SCHEDULED MEDICATION, GAVE 2 UNITS INSULIN SUBQ FOR BLOOD SUGAR 176, TOLERATED WELL. WILL CONTINUE TO MONITOR
--- NOTE | 2020-02-27 22:45 | NUR ---
PT ASLEEP IN BED. NRB IN PLACE. NO S/S ACUTE DISTRESS NOTED. WILL CONTINUE TO MONITOR
[2020-02-28 04:00] VITALS: BP 136/77
--- NOTE | 2020-02-28 04:18 | NUR ---
PT ASLEEP IN BED. RESPIRATIONS EVEN UNLABORED, NO S/S ACUTE DISTRESS NOTED. WILL CONTINUE TO MONITOR
[2020-02-28] MEDS: BLOOD GLUCOSE MONITORING 1 DEV DEV FS SCH ×4 (05:35→20:22)
--- NOTE | 2020-02-28 07:24 | NUR ---
ENDORSED PT TO DAY RN FOR CONTINUITY OF CARE. PT IS IN STABLE CONDITION
--- NOTE | 2020-02-28 07:28 | NUR ---
RECEIVED PT FROM POKER DEALER NURSE, PT IS AWAKE AND SEATED ON THE CHAIR, ON NRB AT 15L O2, PT IS AOX4, SAFETY PRECAUTION IN PLACE, IV LINE NOTED ON THE LEFT FA MG. 20 ON SALINE, NO SIGN OF DISTRESS NOTED AND WILL MONITOR PT.
[2020-02-28 08:00] VITALS: BP 123/59
[2020-02-28 08:36] LABS: BASOPHILS # (AUTO) 0.1 K/uL (0.00-0.22); BASOPHILS % (AUTO) 0.4 % (0.0-2.0); EOSINOPHILS # (AUTO) 0.1 K/uL (0-0.4); EOSINOPHILS % (AUTO) 0.3 % (0.0-4.0); HEMATOCRIT 42.9 % (36-52); HEMOGLOBIN 14.3 g/dL (12.0-18.0); LYMPHOCYTES # (AUTO) 1.5 K/uL (2.0-11.5); LYMPHOCYTES % (AUTO) 8.5 % (20.5-51.1); MEAN CORPUSCULAR HEMOGLOBIN 31 pg (27-31); MEAN CORPUSCULAR HGB CONC 34 g/dL (33-37); MEAN CORPUSCULAR VOLUME 92.2 fL (80-94); MONOCYTES # (AUTO) 2.4 K/uL (0.8-1.0); MONOCYTES % (AUTO) 13.2 % (1.7-9.3); NEUTROPHILS # (AUTO) 14.1 K/uL (1.8-7.7); NEUTROPHILS % (AUTO) 77.6 % (42.2-75.2); PLATELET COUNT (AUTO) 360 K/uL (140-450); RED BLOOD CELL COUNT(AUTO) 4.65 MIL/uL (4.20-6.10); RED CELL DISTRIBUTION WIDTH 12.9 % (11.6-13.7); WHITE BLOOD COUNT (AUTO) 18.1 K/uL (4.8-10.8)
[2020-02-28] MEDS: ASCORBIC ACID 500 MG TAB PO SCH (09:03)
[2020-02-28] MEDS: ENOXAPARIN 100 MG/ML SYR SUBQ SCH ×2 (09:03→20:18)
--- NOTE | 2020-02-28 09:03 | NUR ---
PT WAS GIVEN THE SCHEDULED AM MEDICATIONS NOW, PARAMETERS CHECKED AND WILL MONITOR PT.
[2020-02-28 11:31] LABS: ALBUMIN 2.9 g/dL (3.4-5.0); ANION GAP 19.6 (8-16); CARBON DIOXIDE 24.2 mmol/L (21-32); PHOSPHORUS 3.3 mg/dL (2.5-4.9); POTASSIUM 3.8 mmol/L (3.5-5.1); TOTAL BILIRUBIN 0.4 mg/dL (0.0-1.0)
--- NOTE | 2020-02-28 12:07 | NUR ---
BLOOD GLUCOSE CHECK DONE TO PT NOW , AND IS 143 AND NO INSULIN COVERAGE NEEDED.
--- NOTE | 2020-02-28 14:40 | NUR ---
PT IS SEATED ON THE CHAIR, PLAYING WITH HIS CELLPHONE, NO SIGN OF DISTRESS NOTED AND WILL MONITOR PT.
[2020-02-28 16:00] VITALS: BP 122/60
[2020-02-28] MEDS: INSULIN LISPRO SLIDING SCALE 100 UNITS/ML VIAL SUBQ PRN ×2 (17:16→20:18)
--- NOTE | 2020-02-28 17:17 | NUR ---
PT WAS GIVEN INSULIN 4 UNITS FOR BLOOD GLUCOSE OF 239, TOLERATED AND NO SIGN OF DISTRESS NOTED. WILL MONITOR PT.
--- NOTE | 2020-02-28 19:30 | NUR ---
ENDORSED PT TO NIGHT SHIFTY NURSE FOR CONTINUITY OF CARE.
--- NOTE | 2020-02-28 19:35 | NUR ---
RECEIVED REPORT FROM RUTH ANN LARRY. PT AOX4 ON 15L NRB, NO S/S RESPIRATORY DISTRESS. NO C/O PAIN AT THIS TIME. IV SITE LFA 20G, S.L. SAFETY MEASURES IN PLACE. CALL LIGHT WITHIN REACH. WILL CONTINUE TO MONITOR
[2020-02-28 20:00] VITALS: BP 129/66
--- NOTE | 2020-02-28 20:20 | NUR ---
ADMINISTERED SCHEDULED MEDICATION, GAVE 2 UNITS INSULIN FOR BLOOD SUGAR 151, PT TOLERATED WELL, WILL CONTINUE TO MONITOR
--- NOTE | 2020-02-29 03:50 | NUR ---
PT RESTING IN BED. NRB IN PLACE. NO S/S ACUTE DISTRESS NOTED. WILL CONTINUE TO MONITOR
[2020-02-29 04:00] VITALS: BP 118/60
[2020-02-29] MEDS: BLOOD GLUCOSE MONITORING 1 DEV DEV FS SCH ×4 (05:39→20:45)
[2020-02-29 05:57] LABS: BASOPHILS # (AUTO) 0.1 K/uL (0.00-0.22); BASOPHILS % (AUTO) 0.3 % (0.0-2.0); EOSINOPHILS % (AUTO) 0.1 % (0.0-4.0); HEMATOCRIT 41.5 % (36-52); HEMOGLOBIN 13.8 g/dL (12.0-18.0); LYMPHOCYTES # (AUTO) 1.4 K/uL (2.0-11.5); LYMPHOCYTES % (AUTO) 6.4 % (20.5-51.1); MEAN CORPUSCULAR HEMOGLOBIN 31 pg (27-31); MEAN CORPUSCULAR HGB CONC 33 g/dL (33-37); MEAN CORPUSCULAR VOLUME 92.4 fL (80-94); MONOCYTES % (AUTO) 13.6 % (1.7-9.3); NEUTROPHILS # (AUTO) 17.5 K/uL (1.8-7.7); NEUTROPHILS % (AUTO) 79.6 % (42.2-75.2); PLATELET COUNT (AUTO) 365 K/uL (140-450); RED BLOOD CELL COUNT(AUTO) 4.49 MIL/uL (4.20-6.10); RED CELL DISTRIBUTION WIDTH 13.2 % (11.6-13.7)
--- NOTE | 2020-02-29 06:33 | NUR ---
RECEIVED CALL FROM LAB, PT WBC 22.0. MADE AWARE. NO NEW ORDERS. WILL CONTINUE TO MONITOR PT
[2020-02-29 06:53] LABS: ALBUMIN 2.6 g/dL (3.4-5.0); ANION GAP 15.5 (8-16); CARBON DIOXIDE 25.3 mmol/L (21-32); CREATININE 0.9 mg/dL (0.6-1.3); MAGNESIUM 1.8 mg/dL (1.8-2.4); PHOSPHORUS 3.1 mg/dL (2.5-4.9); POTASSIUM 3.8 mmol/L (3.5-5.1); TOTAL BILIRUBIN 0.6 mg/dL (0.0-1.0)
--- NOTE | 2020-02-29 07:10 | NUR ---
ENDORSED PT TO DAY RN FOR CONTINUITY OF CARE. PT IS IN STABLE CONDITION
--- NOTE | 2020-02-29 07:20 | NUR ---
REC'D REPORT FROM NIGHT SHFIT NURSE, PT STABLE SLEEPING, ON 15L NRB
[2020-02-29 08:00] VITALS: BP 136/84
[2020-02-29] MEDS: ASCORBIC ACID 500 MG TAB PO SCH (09:14)
[2020-02-29] MEDS: ENOXAPARIN 100 MG/ML SYR SUBQ SCH (09:16)
--- NOTE | 2020-02-29 10:40 | NUR ---
RECEIVED BEDSIDE REPORT FROM DAY SHIFT NURSE. PT AOX4 ON 15L NRB SATING AT 90%. NO S/S RESPIRATORY DISTRESS. NO C/O PAIN AT THIS TIME. IV SITE LFA 20G, S.L. PLAN OF CARE WAS DISCUSSED. SAFETY MEASURES IN PLACE. CALL LIGHT WITHIN REACH. WILL CONTINUE TO MONITOR
--- NOTE | 2020-02-29 12:36 | NUR ---
BLOOD SUGAR CHECK IS 170. INSULIN COVERAGE NEEDED. ADMINISTERED 2 UNITS OF INSULIN. PT IS STABLE. WILL CONTINUE TO MONITOR.
[2020-02-29] MEDS: INSULIN LISPRO SLIDING SCALE 100 UNITS/ML VIAL SUBQ PRN ×3 (12:40→20:46)
--- NOTE | 2020-02-29 14:30 | NUR ---
CHECKED ON PATIENT. PATIENT IS STABLE AND NO DISTRESS NOTED. WILL CONTINUE TO MONITOR.
--- NOTE | 2020-02-29 15:30 | NUR ---
CHECKED ON PATIENT. PATIENT IS STABLE. NO DISTRESS NOTED. WILL CONTINUE TO MONITOR.
[2020-02-29 16:00] VITALS: BP 115/68
--- NOTE | 2020-02-29 19:25 | NUR ---
RECEIVED BEDSIDE REPORT FROM DAY SHIFT NURSE FOR CONTINUITY OF CARE. PT IS AWAKE AND ALERT, A&OX4. ON 15L O2 NRB WITH BREATHING UNLABORED. PT IS AMBULATORY TO CHAIR. SKIN IS WARM, DRY, AND INTACT. IV IS IN THE LEFT FOR 20 GAUGE SALINE LOCKED. PT IS STABLE AT THIS TIME. DROPLET PRECAUTION AND FALL PRECAUTION IN PLACE. PLAN OF CARE DISCUSSED.
--- NOTE | 2020-02-29 19:48 | NUR ---
ENDORSED TO METAL BUILDING ASSEMBLER NURSE FOR CONTINUITY OF CARE.
--- NOTE | 2020-02-29 21:30 | NUR ---
PT IS AWAKE AND ALERT. PT STATES HE DOES NOT WANT TO EAT DINNER. HE HAD JELLO AND SALAD ONLY. ITEMS WERE THROWN AWAY REQUESTED. PT IS SPEAKING APPROPRIATELY. SITTING AT THE EDGE OF THE BED. PT IS STABLE.
--- NOTE | 2020-02-29 23:32 | NUR ---
MADE ROUNDS ON PT. HE IS ASLEEP. NRB ON 15L O2 IN PLACE. BREATHING IS UNLABORED. NO SOB NOTED. WILL CONTINUE TO MONITOR.
--- NOTE | 2020-03-01 01:31 | NUR ---
PT IS SLEEPING. NO DISTRESS NOTED. CHEST RISE AND FALL IS SYMMETRICAL. NRB IS IN PLACE WITH 15L 02. FREQUENT ROUNDS TO ENSURE SAFETY. WILL CONTINUE TO MONITOR.
--- NOTE | 2020-03-01 01:38 | NUR ---
PT SEEN AND ASSESSED. PT ON NON REBREATHER 15L WITH SPO2 90%. PT WAS ASKED TO PRONE. PT SAID HE WILL PRONE LATER. PT IN NO RESPIRATORY DISTRESS AT THIS TIME. WILL CONTINUE TO MONITOR PT.
--- NOTE | 2020-03-01 03:30 | NUR ---
ENCOURAGED PT TO PRONE WITH RT, MAIRA. PT TURNED ON STOMACH AND O2 SAT WAS 94% ON 15L O2 NRB. WILL CONTINUE TO MONITOR PT. PT VERBALIZED UNDERSTANDING FOR PRONE POSITION.
[2020-03-01 04:00] VITALS: BP 148/71
[2020-03-01] MEDS: BLOOD GLUCOSE MONITORING 1 DEV DEV FS SCH ×4 (05:50→21:42)
[2020-03-01] MEDS: ACETAMINOPHEN 325 MG TAB PO PRN ×2 (05:51→16:15)
--- NOTE | 2020-03-01 05:51 | NUR ---
PT STATES HE HAS A HEADACHE AND WAS GIVEN TYLENOL TO HELP WITH THE PAIN. WILL CONTINUE TO MONITOR FOR HEADACHE.
[2020-03-01 06:41] LABS: BASOPHILS # (AUTO) 0.1 K/uL (0.00-0.22); BASOPHILS % (AUTO) 0.6 % (0.0-2.0); EOSINOPHILS # (AUTO) 0.1 K/uL (0-0.4); EOSINOPHILS % (AUTO) 0.3 % (0.0-4.0); HEMATOCRIT 39.2 % (36-52); LYMPHOCYTES # (AUTO) 1.5 K/uL (2.0-11.5); LYMPHOCYTES % (AUTO) 6.5 % (20.5-51.1); MEAN CORPUSCULAR HEMOGLOBIN 31 pg (27-31); MEAN CORPUSCULAR HGB CONC 33 g/dL (33-37); MEAN CORPUSCULAR VOLUME 92.3 fL (80-94); MONOCYTES % (AUTO) 13.1 % (1.7-9.3); NEUTROPHILS # (AUTO) 17.8 K/uL (1.8-7.7); NEUTROPHILS % (AUTO) 79.5 % (42.2-75.2); PLATELET COUNT (AUTO) 319 K/uL (140-450); RED BLOOD CELL COUNT(AUTO) 4.25 MIL/uL (4.20-6.10); WHITE BLOOD COUNT (AUTO) 22.5 K/uL (4.8-10.8)
[2020-03-01 07:06] LABS: ALBUMIN 2.4 g/dL (3.4-5.0); ANION GAP 12.2 (8-16); CARBON DIOXIDE 29.2 mmol/L (21-32); CREATININE 0.9 mg/dL (0.6-1.3); MAGNESIUM 2.5 mg/dL (1.8-2.4); PHOSPHORUS 3.3 mg/dL (2.5-4.9); POTASSIUM 4.4 mmol/L (3.5-5.1); TOTAL BILIRUBIN 0.5 mg/dL (0.0-1.0)
--- NOTE | 2020-03-01 07:15 | NUR ---
RECEIVED HANDOFF REPORT FROM GLASS CLEANING MACHINE TENDER RN. POC REVIEWED AND DISCUSSED. DENIES DISCOMFORT OR PAIN. AFEBRILE. ON 15L O2 VIA NRM. NO SOB NOTED. DENIES N/V. WILL CONTINUE TO MONITOR.
--- NOTE | 2020-03-01 07:15 | NUR ---
ENDORSED PT TO DAY SHIFT NURSE FOR CONTINUITY OF CARE. PT IS STABLE AT THIS TIME. BREATHING IS UNLABORED. PLAN OF CARE DISCUSSED.
[2020-03-01 08:00] VITALS: BP 122/73
[2020-03-01] MEDS: ASCORBIC ACID 500 MG TAB PO SCH (08:56)
[2020-03-01] MEDS ORDERED: ENOXAPARIN 40 MG/0.4 ML SYR SUBQ SCH (09:00)
[2020-03-01 12:00] VITALS: BP 130/72
--- NOTE | 2020-03-01 12:00 | NUR ---
PT IS SITTING ON THE CHAIR. PT IS RESTING AND CALM. NO S/S OF RESPIRATORY DISTRESS. KEPT ON DROPLET PRECAUTION.
[2020-03-01] MEDS: INSULIN LISPRO SLIDING SCALE 100 UNITS/ML VIAL SUBQ PRN ×2 (12:30→17:29)
[2020-03-01 16:00] VITALS: BP 120/68
--- NOTE | 2020-03-01 19:30 | NUR ---
ENDORSED PT TO DYNAMICS AX TECHNICAL ARCHITECT RN. PT IS STABLE. NO CHANGE OF CONDITION. POC DISCUSSED AND REVIEWED.
--- NOTE | 2020-03-01 19:31 | NUR ---
RECEIVED BEDSIDE ENDORSEMENT FROM AM SHIFT RN. AOX4, NO SOB, O2 SAT WNL, ON 15 L NRB, SAFETY MEASURES IN PLACE, PLAN OF CARE DISCUSSED, ISO PRECAUTION OBSERVED, CALL LIGHT WITHIN REACH.
[2020-03-01 20:00] VITALS: BP 143/80
--- NOTE | 2020-03-01 21:42 | NUR ---
BS 116. NO COV NEEDED, WARM BLANKET GIVEN ,KEPT COMFORTABLE, CALL LIGHT WITHIN REACH.
--- NOTE | 2020-03-01 23:45 | NUR ---
RE INSERTED A NEW IV SITE 18G TO LAC AND RT AC FOR CT ANGIO ACCESS, TOLERATED PROCEDURE WELL, CALL LIGHT WITHIN REACH.
--- NOTE | 2020-03-02 00:15 | NUR ---
PT IS FOR CT ANGIO, UNHOOK THE O2 FROM THE WALL AND CONNECTED IT TO THE PORTABLE O2 AT 15L BUT PT SAID THAT THE O2 WAS NOT ENOUGH, INCREASED IT TO 25L, STILL NOT ENOUGH, PT GOT ANXIOUS, SO I CONNECT IT BACK TO THE WALL O2. GOT ANOTHER PORTABLE O2 TANK AND TRIED TO CONNECT THE O2, BUT IT'S THE SAME, PT SAID THE O2 IS NOT MUCH.
[2020-03-02] MEDS: LORazepam 2 MG/ML VIAL IVP PRN (00:29)
--- NOTE | 2020-03-02 00:29 | NUR ---
PT IS ANXIOUS, SITTING ON BED, ASK PT IF HE WANTS SOMETHING TO HELP HIM RELAX. I ASKED HIM IF HE WANTS ATIVAN TO HELP HIM RELAX. PT SAID YES. ATIVAN PRN GIVEN, O2 SAT 90%, CALL LIGHT WITHIN REACH. WILL CONTINUE TO MONITOR.
--- NOTE | 2020-03-02 02:00 | NUR ---
PT SLEEPING LYING ON HIS LEFT SIDE, NO SOB, CONTINUE ON NRB, RESPIRATION EVEN AND UNLABORED, CALL LIGHT WITHIN REACH.
--- NOTE | 2020-03-02 02:15 | NUR ---
PT'S O2 SAT IS DECREASING, FLUCTUATING FROM 70'S TO 90'S. RT CALLED, TRIED TO PUT HIM ON NC + NRB 15 L, TRIED HI-FLOW AND BIPAP, IT SHOWED LITTLE IMPROVEMENT 73% - 75% IMPROVEMENT, CALLED RAPID RESPONSE. INFORMED HERB GROWER DR. SANTACRUZ AT 0245. SAID TO CON'T ON BIPAP, PUT ON TELE AND CALL THE PULMO IF OK TO INTUBATE, ORDER NOTED, CALLED PULMO, UNABLE TO REACH, CALLED THE AND SON, UNABLE TO REACH, LEFT VOICEMAIL TO ASH[place], DAUGHTER IN LAW, ER DR. MARRERO CAME IN AND CHECK PT AND EVENTUALLY INTUBATING THE PT, PT IS FULL CODE.
[2020-03-02] MEDS: ACETAMINOPHEN 325 MG TAB PO PRN (02:20)
[2020-03-02] MEDS ORDERED: PROPOFOL 1000 MG/100 ML PREMIX 100 ML IV ONE (02:58)
--- NOTE | 2020-03-02 03:15 | NUR ---
PT TRANSFERRED TO ICU. ALL PERSONAL BELONGINGS WAS ALSO TAKEN.
[2020-03-02] MEDS ORDERED: PROPOFOL 1000 MG/100 ML PREMIX 100 ML IV PRN (03:40)
--- NOTE | 2020-03-02 03:40 | NUR ---
PT DESATURATING. PLACED PT ON BiPAP. SPO2 NOT IMPROVING. ABG COLLECTED AND RESULTS REPORTED TO DR. MARRERO. BASED ON ABG RESULTS. PT WAS INTUBATED FOR RESPIRATORY FAILURE SECONDARY TO HYPOXEMIA. PT WAS INTUBATED WITH ETT SIZE 8.O AND SECURED WITH ANCHOR-FAST @ 24 cc @ TEETH. PT WAS TRANSFER TO ICU AFTER INTUBATION AND CONNECTED TO VENT. DR. MARRERO AT BEDSIDE FOR VENT SETTINGS.
--- NOTE | 2020-03-02 03:45 | NUR ---
ENDORSED TO ICU NURSE FOR CONTINUITY OF CARE.
--- NOTE | 2020-03-02 03:45 | NUR ---
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 PROPOFOL DRIP IN PROGRESS AT 15 MCG/KG/MIN VIA PERIPHERAL LINE G 18 ON LEFT AC.
[2020-03-02 03:50] VITALS: BP 109/51
--- NOTE | 2020-03-02 04:06 | NUR ---
PAGED DR. LIZ TO UPDATE AND REFER PATIENT'S MEDICAL CONDITION; GOT NEW ORDERS CARRIED OUT.
[2020-03-02] MEDS ORDERED: METOPROLOL 5 MG/5 ML VIAL IV PRN (04:15)
[2020-03-02] MEDS ORDERED: PHENYLEPHRINE 20 MG in NACL 0.9% 250 ML IV PRN (04:15)
--- NOTE | 2020-03-02 04:30 | NUR ---
HR SLOWLY DROPPING TILL AROUND IN 40'S AND NO PULSE APPRECIATED. CALL FOR CODE BLUE; CPR INITIATED, REVIVED AFTER EMERGENCY MEDS WAS GIVEN. ER MD IS HERE LEADING THE CODE BLUE AND RESUSCITATION.
--- NOTE | 2020-03-02 04:50 | NUR ---
CALLED PATIENT'S SON CHIQUI TO UPDATE ON PATIENT'S UNSTABLE MEDICAL CONDITION BUT NOBODY DREDGE DECKHAND THE PHONE; JUST LEFT MESSAGE ON THE PHONE.
--- NOTE | 2020-03-02 05:00 | NUR ---
CENTRAL LINE TO RIGHT INTERNAL JUGULAR SUCCESSFULLY INSERTED BY DR. MARRERO.
--- NOTE | 2020-03-02 05:01 | NUR ---
RESPONDED TO CORNEL DUARTE. SWITCHED CPR WITH MEIR SABA. SEE CODE BLUE SHEET FOR DETAILS.
--- NOTE | 2020-03-02 05:02 | NUR ---
ER DR. MARRERO AT BEDSIDE. VERBAL ORDER TO INCREASE SET RATE TO 32. WILL CONTINUE TO MONITOR PT.
[2020-03-02] MEDS ORDERED: NOREPINEPHRINE 8 MG in DEXTROSE 5% 250 ML IV PRN (05:20)
[2020-03-02] MEDS ORDERED: NOREPINEPHRINE 4 MG/4 ML VIAL IV ONE (05:24)
--- NOTE | 2020-03-02 05:30 | NUR ---
PT's HEART RATE GRADUALLY DROPPING. WENT TO BEDSIDE WITH MEIR WILEY. CHECK PULSE. NO PULSE. CODE FELICIA CALLED AND CRP INITIATED. SEE CODE BLUE SHEET FOR DETAILS.
[2020-03-02 05:44] LABS: HEMATOCRIT 43.9 % (36-52); HEMOGLOBIN 14.3 g/dL (12.0-18.0); MEAN CORPUSCULAR HEMOGLOBIN 31 pg (27-31); MEAN CORPUSCULAR HGB CONC 33 g/dL (33-37); MEAN CORPUSCULAR VOLUME 94.6 fL (80-94); PLATELET COUNT (AUTO) 343 K/uL (140-450); RED BLOOD CELL COUNT(AUTO) 4.64 MIL/uL (4.20-6.10); RED CELL DISTRIBUTION WIDTH 13.4 % (11.6-13.7)
--- NOTE | 2020-03-02 06:00 | NUR ---
PATIENT WAS CODED AND RESUSCITATED 4TIMES TILL PATIENT AND PRONOUNCED AT [address] MARRERO.
[2020-03-02 06:11] LABS: WHITE BLOOD COUNT (AUTO) 39.2 K/uL (4.8-10.8)
--- NOTE | 2020-03-02 06:30 | NUR ---
DR. MARRERO SPOKE TO PATIENT'S FAMILY ABOUT WHAT HAPPENED TO THE PATIENT; INFORMING THEM THAT PATIENT AFTER RESUSCITATING THE PATIENT 4 TIMES.
[2020-03-02 07:40] LABS: LYMPHOCYTES % (MANUAL) 5 % (20-46); MONOCYTES % (MANUAL) 8 % (5-12)
[2020-03-02 07:55] LABS: ALBUMIN 2.4 g/dL (3.4-5.0); ANION GAP 16.8 (8-16); CARBON DIOXIDE 24.9 mmol/L (21-32); CREATININE 1.3 mg/dL (0.6-1.3); POTASSIUM 4.7 mmol/L (3.5-5.1); TOTAL BILIRUBIN 1.3 mg/dL (0.0-1.0)
--- NOTE | 2020-03-02 09:14 | NUR ---
FREEMAN MADE AWARE PT FAMILY REQUESTING SOME INFO, SHE WILL FAMILY LATER, BELONGINGS GIVEN TO SON, CHIQUI BERRY, DEPUTY TANIA DAIGLE RELEASED BODY.
--- NOTE | 2020-03-02 10:33 | NUR ---
BODY PUT IN THE TEMPORARY FREEZER FOR NOW, UNTIL FAMILY HAD MORTUARY
== END 2020-03-02 10:34 | DRG 720 ==
LOC: MED 16:40 → MTU 22:54 → MIC 03-02 03:15
PROVIDERS: ADMIT Emergency Medicine; ATTEND Emergency Medicine
PROC: 02HV33Z Insertion of Infusion Device into Superior Vena Cava, Percutaneous Approach (ICD-10-PCS; 2020-02-19)
PROC: B548ZZA Ultrasonography of Superior Vena Cava, Guidance (ICD-10-PCS; 2020-02-19)
PROC: 5A12012 Performance of Cardiac Output, Single, Manual (ICD-10-PCS; 2020-02-19)
PROC: XW13325 Transfusion of Convalescent Plasma (Nonautologous) into Peripheral Vein, Percutaneous Approach, New Technology Group 5 (ICD-10-PCS; 2020-02-24)
PROC: XW033E5 Introduction of Remdesivir Anti-infective into Peripheral Vein, Percutaneous Approach, New Technology Group 5 (ICD-10-PCS; principal; 2020-02-25)
PROC: 0BH17EZ Insertion of Endotracheal Airway into Trachea, Via Natural or Artificial Opening (ICD-10-PCS; 2020-03-02)
DX: A41.9 Sepsis, unspecified organism (principal); U07.1 COVID-19; E43 Unspecified severe protein-calorie malnutrition; I46.9 Cardiac arrest, cause unspecified; J15.9 Unspecified bacterial pneumonia; D68.59 Other primary thrombophilia; J96.01 Acute respiratory failure with hypoxia; J12.82 Pneumonia due to coronavirus disease 2019; E11.9 Type 2 diabetes mellitus without complications; Z68.37 Body mass index [BMI] 37.0-37.9, adult; I10 Essential (primary) hypertension; E66.9 Obesity, unspecified; R74.01 Elevation of levels of liver transaminase levels; E86.0 Dehydration
CPT/HCPCS: 36415; 36600; 71045; 80048; 80053; 81003; 82550; 82728; 82803; 82948; 83036; 83605; 83615; 83735; 83880; 84100; 84436; 84439; 84443; 84479; 84484; 85025; 85379; 85384; 85610; 85651; 85730; 86140; 86900; 86901; 87040; 87070; 87081; 87086; 87205; 87420; 87804; 93005; 96365; 96367; 97116; 97161-GP; 99285; J0456; J0696; J1644; J1650; J2060; J2704; J3490; J7030; J7060; P9017; U0003